=== PATIENT | female | born 1965 | race Caucasian/White ===

== ENCOUNTER → 2016-12-23 | Outpatient (CLI) | payer BC | LOC: RAD 14:46 | DX: N63 Unspecified lump in breast (principal) ==

== ENCOUNTER → 2017-08-16 | Outpatient (CLI) | payer OTHER | LOC: CAT 10:47 | DX: K80.20 Calculus of gallbladder without cholecystitis without obstruction (principal); R10.84 Generalized abdominal pain; R31.9 Hematuria, unspecified; N83.291 Other ovarian cyst, right side; Z90.710 Acquired absence of both cervix and uterus ==